=== PATIENT | male | born 1975 ===

== ENCOUNTER 2018-06-28 07:18 | Outpatient (CLI) | payer OTHER | END 2018-06-28 07:20 | disposition home or self-care (01) | LOC: SONOGRAMA 07:18 | DX: E04.1 Nontoxic single thyroid nodule (principal) ==

== ENCOUNTER 2019-02-05 15:24 | Emergency (ER) | payer OTHER ==
[~2019-02-05] VITALS: Ht 170.2 cm; Wt 83.9 kg
[2019-02-05] MEDS ORDERED: ATENOLOL100 MG (15:33)
== END 2019-02-05 18:58 | disposition home or self-care (01) ==
LOC: ER 15:24
DX: S93.492A Sprain of other ligament of left ankle, initial encounter (principal); X50.0XXA Overexertion from strenuous movement or load, initial encounter; Y93.01 Activity, walking, marching and hiking; Y92.413 State road as the place of occurrence of the external cause; Y99.8 Other external cause status

== ENCOUNTER 2020-11-08 01:03 | Emergency (ER) | payer OTHER ==
[~2020-11-08] VITALS: Ht 170.2 cm; Wt 83.9 kg
[~2020-11-08 01:03] MED LIST changes: -DICLOFENAC SODI75 MG PO; -NORFLEX100MG PO
[2020-11-08] MEDS ORDERED: DICLOFENAC SODI75 MG PO (02:13)
[2020-11-08] MEDS ORDERED: NORFLEX100MG PO (02:14)
== END 2020-11-08 02:30 | disposition home or self-care (01) ==
LOC: ER 01:03
DX: S96.811A Strain of other specified muscles and tendons at ankle and foot level, right foot, initial encounter (principal); W17.89XA Other fall from one level to another, initial encounter; Y93.89 Activity, other specified; Y92.810 Car as the place of occurrence of the external cause; Y99.8 Other external cause status

== ENCOUNTER → 2020-11-08 | Emergency (ER) | payer OTHER ==
[~2020-11-08] MED LIST: ATENOLOL100 MG; DICLOFENAC SODI75 MG PO; NORFLEX100MG PO
== END | disposition left against medical advice (07) ==
LOC: ER 00:04
DX: Z53.20 Procedure and treatment not carried out because of patient's decision for unspecified reasons (principal)

== ENCOUNTER 2022-11-17 09:41 | Day surgery (SDC) | payer OTHER ==
[~2022-11-17] VITALS: Ht 170.2 cm; Wt 86.2 kg
[~2022-11-17 09:41] MED LIST changes: +DICLOFENAC SODI75 MG PO; +NORFLEX100MG PO
== END 2022-11-17 15:55 | disposition home or self-care (01) ==
LOC: CIR.AMB 09:41
PROVIDERS: ATTEND Orthopaedic Surgery
DX: M75.122 Complete rotator cuff tear or rupture of left shoulder, not specified as traumatic (principal); M75.22 Bicipital tendinitis, left shoulder; Z20.822 Contact with and (suspected) exposure to COVID-19